=== PATIENT | male | born 1995 | race Caucasian/White ===

== ENCOUNTER 2020-07-16 19:46 | Emergency (ER) | payer SELFPAY ==
[~2020-07-16] VITALS: Ht 175.3 cm; Wt 90.9 kg
[2020-07-16] MEDS ORDERED: AMOX/K CLAV875 M1 PO (20:51)
[2020-07-16 20:57] VITALS: BP 145/89
== END 2020-07-16 21:57 | disposition home or self-care (01) | DRG 605 ==
LOC: ED 19:46
PROC: 0HQ1XZZ Repair Face Skin, External Approach (ICD-10-PCS; principal; 2020-07-16)
DX: S01.81XA Laceration without foreign body of other part of head, initial encounter (principal); F17.220 Nicotine dependence, chewing tobacco, uncomplicated; W22.8XXA Striking against or struck by other objects, initial encounter; Y93.59 Activity, other involving other sports and athletics played individually; Y92.39 Other specified sports and athletic area as the place of occurrence of the external cause

== ENCOUNTER 2020-07-17 11:19 | Emergency (ER) | payer SELFPAY ==
[~2020-07-17] VITALS: Ht 175.3 cm; Wt 101.0 kg
[~2020-07-17 11:19] MED LIST: AMOX/K CLAV875 M1 PO
[2020-07-17 12:10] VITALS: BP 127/66
== END 2020-07-17 12:10 | disposition home or self-care (01) | DRG 159 ==
LOC: ED 11:19
DX: S01.511A Laceration without foreign body of lip, initial encounter (principal); F17.290 Nicotine dependence, other tobacco product, uncomplicated; X58.XXXA Exposure to other specified factors, initial encounter; Y93.59 Activity, other involving other sports and athletics played individually; Y92.39 Other specified sports and athletic area as the place of occurrence of the external cause